=== PATIENT | female | born 1960 | race Caucasian/White ===

== ENCOUNTER → 2021-01-19 10:07 | Outpatient (CLI) | payer OTHER, SELFPAY ==
[2021-01-19] MEDS: COVID-19 VACC #1, MRNA(MOD) 100 MCG/0.5 ML VIAL IM (10:14)
== END ==
PROVIDERS: Visit Provider Internal Medicine
DX: Z23 Encounter for immunization (principal)
CPT/HCPCS: 0011A; 91301

== ENCOUNTER → 2021-02-17 09:39 | Outpatient (CLI) | payer OTHER, SELFPAY ==
[2021-02-17] MEDS: COVID-19 VACC #2, MRNA(MOD) 100 MCG/0.5 ML VIAL IM (09:51)
== END ==
PROVIDERS: Visit Provider Internal Medicine
DX: Z23 Encounter for immunization (principal)
CPT/HCPCS: 0012A; 91301

== ENCOUNTER 2021-06-10 18:23 | Emergency (ER) | payer OTHER, SELFPAY ==
[2021-06-10 18:49] VITALS: BP 169/77; PULSE 66; RESP 16; TEMP 36.3; O2SAT 97; BMI 26.6
== END 2021-06-10 19:49 | disposition left against medical advice (07) ==
PROVIDERS: Emergency Provider Emergency Medicine; PCP Internal Medicine
CPT/HCPCS: 99281

== ENCOUNTER → 2024-01-09 | Outpatient (CLI) | payer MEDICARE, SELFPAY ==
--- NOTE | 2024-01-09 10:13 | DI.RAD.S_ITS ---
Bone Density Report Name: RADHA GRIGGS Age: 63 Sex: Female Ethnicity: White Date of : 1960 Indication: postmenopausal; screening for osteoporosis; Referring Provider: DARLEEN LYNN Study: Bone densitometry was performed. Exam Date: January 09, 2024 Accession number: [id number] Bone Density: Region BMD T-score Z-score Classification AP Spine(L1-L4) 0.976 -0.6 1.2 Normal Femoral Neck (Left) 0.804 -0.4 1.1 Normal Total Hip (Left) 0.971 0.2 1.5 Normal Femoral Neck (Right) 0.831 -0.2 1.4 Normal Total Hip (Right) 0.958 0.1 1.4 Normal Total Hip Mean 0.965 0.2 1.5 Normal World Health Organization criteria for BMD impression classify patients as: Normal (T-score at or above -1.0), Osteopenia (T-score between -1.0 and -2.5), or Osteoporosis (T-score at or below -2.5). 10-year Fracture Risk: FRAX not reported because: All T-scores for Spine Total, Hip Total, Femoral Neck at or above -1.0 Impression: The patient has normal bone mass. Discussion: BONE DENSITY IS ABOVE THE MINIMUM DESIRABLE LEVEL AT ALL SKELETAL SITES TESTED. This patient's bone mineral density is above the minimum desirable level (T-score -1.0 or better) at all sites measured. The patient should follow a healthful lifestyle (good nutrition with adequate calcium and vitamin D, and appropriate weight-bearing exercise). Follow-Up: Consider repeating this study in 5 years or sooner if there is some new clinical indication. Reported by: [facility] WILL MONTES M.D. on 01/09/2024 10:51:00 AM.
== END ==
LOC: RAD 10:12
PROVIDERS: PCP Registered Nurse; Referring Provider Registered Nurse; Visit Provider Registered Nurse
DX: Z78.0 Asymptomatic menopausal state (principal); Z13.820 Encounter for screening for osteoporosis
CPT/HCPCS: 77080

== ENCOUNTER → 2024-11-21 14:23 | Outpatient (CLI) | payer MEDICARE, SELFPAY ==
--- NOTE | 2024-11-21 14:26 | DI.RAD.S_ITS ---
PROCEDURE: XR KNEE LT 3V INDICATIONS: Sprain of medial collateral ligament of left knee, initial e TECHNIQUE: 3 views of the knee were acquired. COMPARISON: None. FINDINGS: Bones: Small calcification, adjacent to the lateral patella on sunrise view, may represent a remote avulsion fracture. 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 on 11/22/2024 at 10:55 Approved by: Franck Tan M.D. on 11/22/2024 at 10:56
== END ==
LOC: RAD 14:25
PROVIDERS: PCP Registered Nurse; Referring Provider Registered Nurse; Visit Provider Registered Nurse
DX: S83.8X2A Sprain of other specified parts of left knee, initial encounter (principal); S83.412A Sprain of medial collateral ligament of left knee, initial encounter
CPT/HCPCS: 73562